=== PATIENT | female | born 1985 | race Asian ===

== ENCOUNTER → 2021-02-04 | Outpatient (CLI) | payer OTHER ==
--- NOTE | 2021-02-06 08:02 | ECGEPIP ---
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 No prior tracing for comparison. Clincal correlation advised Electronically Signed on 02-06-2021 8:02:16 EDT by Mario Jeff
== END ==
LOC: M EKG 11:30
PROVIDERS: ATTEND Registered Nurse Maternal Newborn
DX: O24.419 Gestational diabetes mellitus in pregnancy, unspecified control (principal)

== ENCOUNTER → 2021-05-15 | Outpatient (CLI) | payer OTHER ==
--- NOTE | 2021-05-15 11:57 | REP ---
INDICATION: PREG, GROWTH, DIABETES. COMPARISON: None. TECHNIQUE: Multiple ultrasonographic images of the gravid uterus. FINDINGS: There is a single intrauterine gestation in a breech presentation. heart rate is 135 beats per minute. The placenta is anterior with grade 1 maturity. There is no placenta previa. Subjectively the amniotic fluid volume is normal. MAGI: 19.7 (9.4-22.8). Cervix measures 4.3 cm in length. The composite ultrasound gestational age by today's study is 28 weeks 4 days with an INÉS of 08/03/2021. Gestational age by LMP is 28 weeks 1 day with an INÉS of 08/06/2021. Estimated weight is 1231 g/2 lb, 11 oz. This is the 51st percentile for 28 weeks 1 day. Umbilical artery Doppler assessment: PSV 53.6 centimeters/second. EDV 19.0 centimeters/second. S/D 2.82 (2.08-4.35). RI 0.65 (0.55-0.78). The following anatomic structures are identified and are unremarkable: Cranium, falx, intracranial ventricles, choroid plexus, facial profile, orbits, upper lip, lungs, cardiac rhythm, diaphragm, stomach, abdominal wall, bladder and 3 vessel cord. Suboptimally demonstrated because of age and position are the four-chamber view of the heart, cardiac right left ventricular outflow tracts, and right and left kidneys. A follow-up study dedicated to these structures might be considered. IMPRESSION: Some of the anatomic structures are suboptimally demonstrated because of age and position. Follow-up study dedicated to these structures might be considered. <Electronically signed by Jong De La Garza > 05/15/21 2148
== END ==
LOC: M RAD 10:42
PROVIDERS: ATTEND Registered Nurse Maternal Newborn
DX: O24.113 Pre-existing type 2 diabetes mellitus, in pregnancy, third trimester (principal); Z3A.28 28 weeks gestation of pregnancy; O32.1XX0 Maternal care for breech presentation, not applicable or unspecified

== ENCOUNTER → 2021-07-09 | Outpatient (CLI) | payer OTHER ==
--- NOTE | 2021-07-09 16:25 | REP ---
INDICATION: DIABETES. COMPARISON: 1121 the only prior TECHNIQUE: Transabdominal FINDINGS: Multiple ultrasonographic images of the gravid uterus shows a single living intrauterine gestation in the cephalic presentation. The placenta is anterior right lateral and not low-lying. The cervix measures 3.6 cm in length and is closed. The subjective amniotic fluid volume is within normal limits. Doppler interrogation of the heart shows a heart rate of 150 beats per minute. Doppler interrogation of the umbilical artery shows an A\B ratio of 2.16 which is within the normal range. BPD: 9.1 cm 37 weeks 1 day HC: 33.1 cm 37 weeks 4 days AC: 34.4 cm 38 weeks 2 days FL: 7.3 cm 37 weeks 4 days The estimated weight is 3337 g which is greater than the 97th percentile for a 36 week 0 day gestational age which was based on the 1st ultrasound study. The kidneys and four-chamber heart were seen to be unremarkable today once again, the ventricular outflow tracts are seen suboptimally. IMPRESSION: Single living intrauterine gestation as described above with an estimated gestational age of 37 weeks 4 days via composite criteria and an estimated date of delivery of 07/26/2021 by today's exam. No anomalies were detected, however, the ventricular outflow tracts were still seen suboptimally. The remainder of the anatomical screen is complete, however, follow-up to visualize the outflow tracks is recommended <Electronically signed by Jarek Reinoso > 07/09/21 [id number]
== END ==
LOC: M RAD 15:02
PROVIDERS: ATTEND Advanced Practice Midwife
DX: O24.113 Pre-existing type 2 diabetes mellitus, in pregnancy, third trimester (principal); Z3A.35 35 weeks gestation of pregnancy

== ENCOUNTER 2021-07-12 10:45 | Inpatient (IN) | payer OTHER ==
[~2021-07-12] VITALS: Ht 154.9 cm; Wt 65.9 kg
[2021-07-12] VITALS (33 sets, daily range): BP systolic 125–184; BP diastolic 70–122
[2021-07-12] MEDS ORDERED: PRENTAB9 PO (11:21)
[2021-07-12] MEDS ORDERED: UNIS25TA3 PO (11:21)
[2021-07-12] MEDS ORDERED: ASPI81CH33 PO (11:21)
[2021-07-12 13:07] LABS: HEMATOCRIT 40.1 % (36.0-47.0); HEMOGLOBIN 14.1 g/dl (12.0-15.5); MEAN CORPUSCULAR HEMOGLOBIN 33.1 pg (27.0-33.0); MEAN CORPUSCULAR HGB CONC 35.2 g/dl (32.0-36.5); MEAN CORPUSCULAR VOLUME 94.1 fl (80.0-96.0); PLATELET COUNT, AUTOMATED 207 10^3/uL (150-450); RED BLOOD COUNT 4.26 10^6/uL (4.00-5.40); WHITE BLOOD COUNT 7.1 10^3/uL (4.0-10.0)
[2021-07-12 13:27] LABS: ALT/SGPT 26 U/L (12-78); BILIRUBIN,TOTAL 0.4 MG/DL (0.2-1.0); GLOMERULAR FILTRATION RATE > 60.0 (>60); LDH LACTATE DEHYDROGENASE 202 U/L (84-246); URIC ACID 7.3 MG/DL (2.6-6.0)
[2021-07-12 13:51] LABS: CREATININE,RANDOM URINE 23.3 MG/DL; TOTAL PROTEIN,RANDOM URINE 11.4 MG/DL (0.0-12.0)
[2021-07-12] MEDS: BETAMETHASONE SOLUSPAN 6MG/ML 5ML VIAL (J0702 PER 3MG) IM SCH (14:24)
[2021-07-12] MEDS: LABETALOL 100MG/20ML VIAL IV SCH ×2 (15:51→16:23)
[2021-07-12] MEDS ORDERED: LIDOCAINE 1% MDV 20ML VIAL INFIL PRN (15:55)
[2021-07-12] MEDS ORDERED: TRANEXAMIC ACID INJection 1,000 MG in NS 100 ML IV PRN (15:55)
[2021-07-12] MEDS ORDERED: CARBOPROST TROMETHAMINE 250 MCG/ML AMP IM PRN (15:55)
[2021-07-12] MEDS ORDERED: miSOPROStol 25MCG 1/4 TABLET SL ONE (15:55)
[2021-07-12] MEDS ORDERED: OXYTOCIN DRIP 30 UNITS in IV 1 EA IV PRN (15:55)
[2021-07-12] MEDS ORDERED: CALCIUM GLUCONATE 1,000 MG in D5W MINI-BAG PLUS 100 ML IV PRN (15:55)
[2021-07-12] MEDS ORDERED: MAG Sulf (L&D) 4 GM/100 ML 4 GM in IV 1 EA IV ONE (16:00)
[2021-07-12] MEDS ORDERED: PENICILLIN G POTASSIUM IV 5 MU in D5W MINI-BAG PLUS 100 ML IV ONE (16:00)
[2021-07-12] MEDS: MAG Sulf (OBGYN) 20GM/500ML 20,000 MG in IV 1 EA IV SCH (16:27)
[2021-07-12] MEDS: LR 1,000 ML IV SCH (16:28)
--- NOTE | 2021-07-12 16:32 | HPEPDOC ---
Obstetrical History & Physical General Date of Admission History of Present Illness Chief Complaint: Patient is a 36yo G 1 P 0 at 36+3 wks gestation who was sent to L&D triage from clinic due to severe range blood pressures during APFT. Patient was observed in outpatient status for 4 hrs and continued to have mild elevations in blood pressure Patient presents: Spouse HPI: Reports irregular cramping. Denies any leaking of fluid, vaginal bleeding. Reporting good movement. Denies any contractions. Denies any headaches, nausea, vomiting, RUQ pain. Denies any dysuria, vaginal discharge, vaginal itching/burning. ROS: GEN: Feeling Fine. Denies fevers, chills. Denies Fatigue. Psych: Denies severe depression. Eyes: Denies change in vision/ scotomata/blurred vision. Resp: Denies SOB/ANNA, cough, or wheezing. Card: Denies palpitations or Chest pain. MSK: Denies calf pain. Denies low back pain. Lymph: Denies edema to upper or lower extremities bilaterally. ALLERGIES: No allergic/immunologic symptoms. NKDA- Reviewed Information Provided By: Patient Dating Final EDC: Aug 06, 2021 Final EDC by: LMP LMP: Oct 30, 2020 EGA at Admission: 36.3 Antepartum Course Diagnos(e)s 1. Diabetes- diagnosed in 1st trimester Height (inches): 61 Pre- weight (lbs.): 121 Admission Weight (lbs.): 144 Change in Weight (lbs.): 23 Past Medical History Past Obstetrical History : Past Obstetrical History: Primgravida SURFACE TO [employer] History: No pertinent history Past Medical History Medical History Denies Surgical History: Denies/None Family History Significant Family History: No pertinent family hx Social History Marital Status: Family situation: Spouse/partner home Psychosocial History: No pertinent psych hx * Smoker: non-smoker Alcohol: Denies Drugs: denies Abuse Violence Screening Have you been hit/kicked/slapp: No Have you been sexually assault: No Imunizations Tdap status: current Allergies Coded Allergies: No Known Allergies (Unverified , 07/12/21) Medications Scheduled Aspirin (Aspirin) 81 Mg Tab.chew, 1 TAB PO DAILY for pain Doxylamine Succinate (Unisom Sleep Aid) 25 Mg Tablet, 1 TAB PO QPM No.137/Iron/Folic Acd ( Vitamin Tablet) 1 Each Tablet, 1 TAB PO DAILY Physical Examination Physical Examination Exam: General: Well-appearing, in no acute distress. PSYCH: Well groomed. Appropriate affect, normal mood. Conversed easily. Neuro: Oriented to time, place, and person. Patellar Deep tendon reflexes normal. Negative clonus. RESP: Lungs clear to auscultation bilaterally without wheezes, rales or rhonchi. Unlabored breathing. CV: Normal RRR, no murmur, c/w normal . No edema to bilateral upper and lower extremities. Negative calf tenderness. ABD: Gravid. Soft, non-tender. BS normal x4 quad. Uterus non-tender. MSK: Normal mvmt all extremities. Steady gait. Soledad from a seated position without assistance. SKIN: Dry, intact. Genitalia: External Genitalia showed no abnormalities, Obstetrical: Clinical Pelvimetry: Pelvis adequate, untested. FHR: 145 rate, moderate variability, accelerations present, no decelerations. Contractions noted every 5-10 min, mild to palpation. VTX by Zack EFW: 3300gm SVE: 1/thick/-2, posterior/meconium @ 1340 Jack Machine Operator present for exam: L&D RN Vital Signs/I&O Vital Signs Date Time Temp Pulse Resp B/P (MAP) Pulse Ox O2 Delivery O2 Flow Rate FiO2 07/12/21 15:50 07/12/21 15:38 07/12/21 15:35 07/12/21 14:35 98.9 88 83 77 85 18 16 184/122 176/100 180/97 164/107 (126) 07/12/21 11:10 97.9 Laboratory Data 24H LABS Laboratory Tests 2 07/12/21 12:43: Urine Random Creatinine 23.3, Urine Random Total Protein 11.4. P:C 0.489 07/12/21 12:52: Nucleated Red Blood Cells % (auto) 0.3H, Glomerular Filtration Rate > 60.0, Uric Acid 7.3H, Total Bilirubin 0.4, Aspartate Amino Transf (AST/SGOT) 24, Alanine Aminotransferase (ALT/SGPT) 26, Lactate Dehydrogenase 202, Syphilis Serology NONREACTIVE 07/12/21 14:13: Coronavirus (COVID-19)(PCR) NEGATIVE CBC/BMP Laboratory Tests 07/12/21 12:52 Microbiology Microbiology 07/12/21 Group B Streptococcus Screen (DONNA), Received Pending Pertinent Laboratoy Data Blood Type: B+ RBC Antibody Screen: Negative HIV: Negative Hepatitis B: Negative Rapid Plasma Reagin: Nonreactive Rubella: Immune Varicella: Immune Chlamydia/Gonorrhea: Negative Group B Streptococcus: Unknown Quad Screen Test: Negative Glucose Tolerance Test: 180 (early with elevated 3hr GTT) Anatomy Ultrasound Ultrasound Date: Mar 18, 2021 Placenta Location: Anterior Normal Anatomy: Yes Placenta Previa: No Other Ultrasounds 05/15/21 SMC: AUA 28+4. EFW 1231gm (51%). Normal fluid, CL 4.cm. Normal umbilical doppler flow. Unable to visualized heart and kidneys. 06/12/21: EFW 2010gm (54%). Normla umbilical doppler flow. Normal fluid. Normal growth. 07/09/21: EFW 3337gm (>97%). normal anatomy. Normal umbilical doppler flow. Steroid Therapy Steroid Therapy: Yes Date #1: Jul 12, 2021 Reason , planned IOL Assessment/Plan Assessment 36yo G 1 P 0 at 36 +3 wks gestation presents seen on L&D triage for extended monitoring due to elevated blood pressure in clinic. While on observation, pt with persistent severe range blood pressures meeting criteria for Pre-eclampsia with severe features. Admit for Induction of labor at this time. B positive/RI/ GBS unknown, swab collected this afternoon Persistent severe range blood pressures at this time with Proteinuria meeting criteria for Pre-e with severe features. LFT and CBC normal. Benign physical exam FHR Cat 1 tracing VTX by Zack & exam EFW: 3300gm by recent US SVE: 1/thick/-2, posterior/medium Plan Consulted with Dr. Conley, admit and proceed to IOL. Admit, consent completed Start mag sulfate for seizure prophylaxis now. Labetalol IV for blood pressures now Plan placement of scott cath to drainage to facilitate strict I&O. Clear liquids at this time. Plan PCN to start for GBS unknown until GBS returns negative. Plan to start when ROM or in active labor. Betamethasone given this afternoon. If still , plan 2nd dose tomorrow. Address pain needs as the arise. Continuous EFM Plan to start IOL process with Buccal 25mcg cytotec with placement of scott bulb when able. Anticipate Labor and Delivery Counseling Reviewed with patient the following with the patient in regards to vaginal delivery (Deliver through the vaginal canal): The purpose of the procedure is to deliver a baby. There may be maternal risks involved with vaginal delivery to include but not limited to: -Use of the medications to induce or augment labor with the risks of uterine rupture, infection, heart rate abnormalities, hemorrhage, and/or need for emergency delivery. -Artificial rupture of the amniotic sac with the risk of cord prolapse -Internal monitors with the associate risks of infection or fever -Infection, which is fever during the labor process -IV pain management, anesthesia as indicated and associated risks with those medications -Vaginal lacerations and repair, episiotomy and repair when needed -Injury to the baby or mother at the time of delivery, -Maternal organ damage, maternal or -Prolonged hospitalized -Possible painful intercourse, chronic pelvic pain In addition to these maternal risks, there may be other possible risks involved in this procedure including, but not limited to: bleeding with the possible need for blood transfusion. Risks of blood transfusion can include but are not french ited to: possible transfusion reaction, virus transmission. Patient consents to blood transfusion if necessary. The likelihood of a successful outcome for this procedure is: Good Reviewed with patient the generally recognized and accepted practical alternatives to this procedure and the accompanying risks are: -Possible emergent Section with its risk of damage to internal organs and necessary repairs, laceration to the baby and necessary repairs -Possible operative vaginal delivery to include forceps or vacuum assist, resulting in: maternal tissue damage, maternal urinary or bowel incontinence, baby bruising, hematoma, scalp swelling, scalp laceration, skull fracture, facial paralysis and its repair Reviewed with patient the practice of medicine is not an exact science and that no guarantees can be made to the patient concerning the results of this procedure, nor guarantees to the effect this procedure will have on underlying medical issues. Reviewed with patient that during the course of labor, it may be necessary or appropriate to perform additional procedure(s) which were unforeseen or not known to be needed at the time of admission. Ms. Beckford appears to understand these risks and elects to proceed with induction of labor today. MARVIN NEGRETE CNM Jul 12, 2021 15:16
--- NOTE | 2021-07-12 17:48 | IPNPDOC ---
Obstetrical Progress Note Date of Service Jul 12, 2021 Objective Vital Signs Date Time Temp Pulse Resp B/P (MAP) Pulse Ox O2 Delivery O2 Flow Rate FiO2 07/12/21 16:23 84 160/105 07/12/21 14:35 16 07/12/21 11:10 97.9 Assessment and Plan Additional Comments To room for acceptance of care. Patient is currently on Mg for pre-eclampsia with severe features requiring IV antihypertensives. She reports no symptoms of pre-eclampsia or magnesium toxicity at this time. Her BPs are mild range. Her NST is CAT I. She has recieved 1 dose of cytotec. SVE 50/-3, DLFB placed. Discussed pain control, desires epidural later and IV pain medications in the interm if she would like. EFREN JONES DO Jul 12, 2021 17:48
[2021-07-12] MEDS ORDERED: miSOPROStol 25MCG 1/4 TABLET PV ONE (20:40)
[2021-07-12] MEDS ORDERED: miSOPROStol 25MCG 1/4 TABLET PO ONE (20:45)
[2021-07-12] MEDS: PENICILLIN G POTASSIUM IV 2.5 MU in IV 1 EA IV SCH (20:52)
[2021-07-13] VITALS (52 sets, daily range): BP systolic 111–188; BP diastolic 66–112
[2021-07-13] MEDS ORDERED: miSOPROStol 50MCG 1/2 TABLET PO ONE (00:20)
[2021-07-13] MEDS ORDERED: miSOPROStol 25MCG 1/4 TABLET PO ONE ×2 (00:55→05:30)
[2021-07-13] MEDS: PENICILLIN G POTASSIUM IV 2.5 MU in IV 1 EA IV SCH ×3 (01:17→09:45)
[2021-07-13] MEDS: MAG Sulf (OBGYN) 20GM/500ML 20,000 MG in IV 1 EA IV SCH ×3 (02:33→22:10)
[2021-07-13] MEDS ORDERED: ACETAMINOPHEN 500 MG TAB PO PRN (03:45)
[2021-07-13] MEDS: LR 1,000 ML IV SCH ×2 (05:49→16:18)
--- NOTE | 2021-07-13 10:31 | IPNPDOC ---
Text Note Date of Service Item Value Date Time Urine Random Creatinine 23.3 MG/DL 07/12/21 1243 Urine Random Total Protein 11.4 MG/DL 07/12/21 1243 Item Value Date Time Creatinine 0.70 MG/DL 07/12/21 1252 Glomerular Filtration Rate > 60.0 07/12/21 1252 Uric Acid 7.3 MG/DL H 07/12/21 1252 Total Bilirubin 0.4 MG/DL 07/12/21 1252 Aspartate Amino Transf (AST/SGOT) 24 U/L 07/12/21 1252 Alanine Aminotransferase (ALT/SGPT) 26 U/L 07/12/21 1252 Lactate Dehydrogenase 202 U/L 07/12/21 1252 Item Value Date Time White Blood Count 7.1 10^3/uL 07/12/21 1252 Red Blood Count 4.26 10^6/uL 07/12/21 1252 Hemoglobin 14.1 g/dl 07/12/21 1252 Hematocrit 40.1 % 07/12/21 1252 Mean Corpuscular Volume 94.1 fl 07/12/21 1252 Mean Corpuscular Hemoglobin 33.1 pg H 07/12/21 1252 Mean Corpuscular Hemoglobin Concent 35.2 g/dl 07/12/21 1252 Red Cell Distribution Width 13.5 % 07/12/21 1252 Platelet Count 207 10^3/uL 07/12/21 1252 Nucleated Red Blood Cells % (auto) 0.3 % H 07/12/21 1252 The patient was seen on 07/13/21. NOTE 07/13/2021 review progress to date . Patient admitted history of severe range bp while monitoring. RISK FACTORS AGDM1 DIET HISTORY SUGGESTS PRE -E . PATIENT GIVEN 4 LOTS CYTOTEC 25 MG,MARTINEZ'S CATHETER 80/60 HAVING SEVERE PAIN WITH PRESSURE IV MGSO4 AND STEROIDS AND PEN G RE GBS STATUS UNKNOWN . REVIEWED CHEMISTRY URIC ACID ELEVATED AND P/C RATIO .41. PLAN OF CARE PATIENT TO EAT X1 THEN REMOVED MARTINEZ'S CATHETER OLD SHOW CERVIX POSTERIOR SOFT 60% EFFACED STRETCHY 4 CM BULGING MEMBRANES PRELIMINARY GBS NEGATIVE . ANTICIPATE D/C PENICILLIN GBS NEGATIVE START LOW DOSE PITOCIN EPIDURAL WHEN APPROPRIATE CONTINUE MGSO4, WILL ORDER CBC RANDOM GLUCOSE MG LEVEL . PATIENT EXPRESSED UNDERSTANDING PLAN OF CARE VS,Fishbone, I+O VS, Fishbone, I+O Laboratory Tests 07/12/21 12:52 Vital Signs Date Time Temp Pulse Resp B/P (MAP) Pulse Ox O2 Delivery O2 Flow Rate FiO2 07/13/21 09:29 76 18 129/77 (94) 07/13/21 07:29 97.6 07/12/21 19:18 98 Room Air I&O- Last 24 Hours up to 6 AM 07/13/21 05:59 Intake Total 2103 ml Output Total 2440 ml Balance -337 ml Bethel Alas MD Jul 13, 2021 10:27
[2021-07-13] MEDS ORDERED: OXYTOCIN 30 UNITS IN 0.9% NaCl 500ML IV BAG (J2590) As Ordered ONE (13:45)
[2021-07-13] MEDS ORDERED: OXYTOCIN DRIP 30 UNITS in IV 1 EA IV SCH (13:45)
[2021-07-13] MEDS: BETAMETHASONE SOLUSPAN 6MG/ML 5ML VIAL (J0702 PER 3MG) IM SCH (14:10)
[2021-07-13 15:56] LABS: HEMATOCRIT 38.9 % (36.0-47.0); HEMOGLOBIN 13.7 g/dl (12.0-15.5); MEAN CORPUSCULAR HEMOGLOBIN 33.1 pg (27.0-33.0); MEAN CORPUSCULAR HGB CONC 35.2 g/dl (32.0-36.5); PLATELET COUNT, AUTOMATED 201 10^3/uL (150-450); RED BLOOD COUNT 4.14 10^6/uL (4.00-5.40); WHITE BLOOD COUNT 9.5 10^3/uL (4.0-10.0)
[2021-07-13 16:20] LABS: MAGNESIUM LEVEL 6.7 MG/DL (1.8-2.4)
[2021-07-13] MEDS ORDERED: FENTANYL 2MCG/ML ROPIVACAINE 0.2% IN 0.9% NACL 100ML IVBAG As Ordered ONE (21:51)
--- NOTE | 2021-07-13 23:19 | IPNPDOC ---
Text Note Date of Service The patient was seen on 07/13/21. NOTE 07/13/21 2315 review post epidural had 2 sever range bp with pain post epid ural bp stabilized . on Pitocin 14 munits category 1 strip arom clear liquor vertex -3 station 75% effaced loose 4 cm mid position safe to proceed VS,Fishbone, I+O VS, Fishbone, I+O Laboratory Tests 07/13/21 15:42 Vital Signs Date Time Temp Pulse Resp B/P (MAP) Pulse Ox O2 Delivery O2 Flow Rate FiO2 07/13/21 22:57 78 16 142/89 (106) 07/13/21 22:25 98.0 100 07/12/21 19:18 Room Air I&O- Last 24 Hours up to 6 AM 07/13/21 06:00 Intake Total 2103 ml Output Total 2440 ml Balance -337 ml Bethel Alas MD Jul 13, 2021 23:19
[2021-07-14] VITALS (71 sets, daily range): BP systolic 103–197; BP diastolic 56–115
[2021-07-14] MEDS ORDERED: EPIDURAL COMMENT XX SCH (00:55)
[2021-07-14] MEDS ORDERED: ONDANSETRON 4MG/2ML VIAL IV PRN (00:55)
[2021-07-14] MEDS ORDERED: FENTANYL/ROPIVACAINE/NACL BAG 100 ML EPIDURAL SCH (00:55)
[2021-07-14] MEDS ORDERED: EPIDURAL/PCA KEYS XX PRN (00:55)
[2021-07-14] MEDS ORDERED: diphenhydrAMINE 50MG/ML VIAL (J1200) IV PRN (00:55)
[2021-07-14] MEDS ORDERED: ePHEDrine SULFATE 25 MG/5 ML(5MG/ML) SYRINGE IV PRN (00:55)
[2021-07-14] MEDS ORDERED: NALOXONE INJ 0.4MG/1ML VIAL (J2310 PER 1MG) IV PRN (00:55)
[2021-07-14] MEDS ORDERED: LACTATED RINGER'S 1000 ML IV PRN (00:55)
[2021-07-14] MEDS ORDERED: REFRIGERATOR IV KEYS XX PRN (00:55)
[2021-07-14] MEDS ORDERED: OXYTOCIN INJ 10 UNITS/ML VIAL (J2590) As Ordered ONE (02:39)
[2021-07-14] MEDS ORDERED: RHOGAM 300 MCG (1500 IU) INJ (J2790) IM SCH (05:55)
[2021-07-14] MEDS ORDERED: DIBUCAINE 1% OINTMENT 30GM TOP PRN (05:55)
[2021-07-14] MEDS ORDERED: ACETAMINOPHEN TAB 650MG DOSE (2X325MG) PO PRN (05:55)
[2021-07-14] MEDS ORDERED: MEASLES,MUMPS,RUBELLA VACCINE INJ (MMR-II) (90707) SC SCH (05:55)
[2021-07-14] MEDS ORDERED: DOCUSATE SODIUM 100MG CAPSULE PO PRN (05:55)
[2021-07-14] MEDS ORDERED: ANUSOL HC CREAM 30GM TOP PRN (05:55)
[2021-07-14] MEDS ORDERED: METHYLERGONOVINE MALEATE 0.2 MG TAB PO PRN (05:55)
[2021-07-14] MEDS ORDERED: MOM 30ML SUSPENSION UDC PO PRN (05:55)
[2021-07-14] MEDS ORDERED: ACETAMINOPHEN 500 MG TAB PO PRN (05:55)
[2021-07-14] MEDS ORDERED: OXYTOCIN DRIP 30 UNITS in IV 1 EA IV ONE (05:55)
[2021-07-14 06:16] LABS: CORD GAS ABE A -6.7; CORD GAS HCO3 A 21.8 MEQ/L; CORD GAS PCO2 A 55.1 mmHg; CORD GAS PH A 7.215 UNITS; CORD GAS PO2 A 14.7 mmHg; CORD GAS SBC A 17.4 MEQ/L; CORD GAS TCO2 A 23.5 MEQ/L
[2021-07-14 06:19] LABS: CORD GAS ABE V -6.8; CORD GAS HCO3 V 18.7 MEQ/L; CORD GAS O2 SAT V 72.9 %; CORD GAS PCO2 V 37.5 mmHg; CORD GAS PH V 7.315 UNITS; CORD GAS PO2 V 32.8 mmHg; CORD GAS SBC V 18.5 MEQ/L; CORD GAS TCO2 V 19.8 MEQ/L
[2021-07-14] MEDS ORDERED: LABETALOL 100MG/20ML VIAL IV STA ×2 (06:25→20:11)
[2021-07-14] MEDS: LR 1,000 ML IV SCH ×5 (07:29→21:55)
[2021-07-14] MEDS: MAG Sulf (OBGYN) 20GM/500ML 20,000 MG in IV 1 EA IV SCH ×2 (07:29→17:41)
[2021-07-14] MEDS: PRENATAL VITAMINS CHEWABLE TABLET PO SCH (09:37)
[2021-07-14] MEDS: LABETALOL 100MG TAB PO SCH ×2 (10:07→20:33)
[2021-07-14] MEDS: IBUPROFEN 600MG TAB PO PRN (12:34)
[2021-07-14 15:11] LABS: HEMATOCRIT 24.5 % (36.0-47.0); MEAN CORPUSCULAR HEMOGLOBIN 33.3 pg (27.0-33.0); MEAN CORPUSCULAR HGB CONC 35.1 g/dl (32.0-36.5); PLATELET COUNT, AUTOMATED 150 10^3/uL (150-450); RED BLOOD COUNT 2.58 10^6/uL (4.00-5.40); WHITE BLOOD COUNT 12.7 10^3/uL (4.0-10.0)
[2021-07-14 15:18] LABS: HEMOGLOBIN 8.6 g/dl (12.0-15.5)
[2021-07-14 15:38] LABS: ALBUMIN 1.6 GM/DL (3.2-5.2); ALT/SGPT 15 U/L (12-78); BILIRUBIN,TOTAL 0.2 MG/DL (0.2-1.0); BLOOD UREA NITROGEN 10 MG/DL (7-18); CALCIUM LEVEL 6.1 MG/DL (8.5-10.1); CARBON DIOXIDE LEVEL 23 MEQ/L (21-32); CHLORIDE LEVEL 100 MEQ/L (98-107); CREATININE FOR GFR 0.68 MG/DL (0.55-1.30); GLOMERULAR FILTRATION RATE > 60.0 (>60); GLUCOSE, FASTING 133 MG/DL (70-100); MAGNESIUM LEVEL 6.3 MG/DL (1.8-2.4); POTASSIUM SERUM 4.2 MEQ/L (3.5-5.1); SODIUM LEVEL 130 MEQ/L (136-145); TOTAL PROTEIN 4.1 GM/DL (6.4-8.2)
[2021-07-14] MEDS ORDERED: LABETALOL 200 MG TAB PO SCH (21:00)
[2021-07-15] VITALS (16 sets, daily range): BP systolic 119–145; BP diastolic 67–91
--- NOTE | 2021-07-15 06:55 | IPN ---
PROGRESS NOTE DATE: 07/15/2021 SUBJECTIVE: This lady is a 36-year-old 1 now para 1 who was admitted at 36 and 5 weeks of gestation for induction of labor because of preeclampsia. She had an epidural in place, had a spontaneous vaginal delivery of female 6 pounds, 2 ounces, 2790 grams, Apgars of 8 and 9 at 1 and 5 minutes respectively, terminal meconium, cord x1, arterial pH 7.21, base excess -6.7, venous pH 7.31, base excess -6.8. She had 24 hours of magnesium sulfate and Esqueda catheter which she diuresed well. She had considerable ups and downs in her blood pressures and was started on labetalol 200 b.i.d. OBJECTIVE: Today, her blood pressure is 133/76, pulse is 95, respirations are 16, temperature is 99.8. She is normocephalic, atraumatic. Neck: Full range of motion. Pupils equal and reactive to light. Distal pulses are symmetric. No evidence of DVT, PE or superficial phlebitis. Chest is clear bilaterally at bases. No wheezes or rhonchi. No CVA tenderness. Abdomen is soft, four quadrant bowel sounds are noted. Uterus is 2 below. Lochia is moderate. The perineum is intact. Her hemoglobin day #1 is 8.6, hematocrit is 24.5, and platelets are 150,00. The plan of care is to discontinue her IVs, Esqueda catheter removal, full diet, ambulate and move her to the steele. The patient expressed an understanding of the plan, the possibility of discharge tomorrow morning. Medications are at [place], a 20 minute discussion. All questions were answered. cc: [facility]
[2021-07-15 07:16] LABS: HEMATOCRIT 24.4 % (36.0-47.0); HEMOGLOBIN 8.3 g/dl (12.0-15.5); MEAN CORPUSCULAR HEMOGLOBIN 32.9 pg (27.0-33.0); MEAN CORPUSCULAR VOLUME 96.8 fl (80.0-96.0); PLATELET COUNT, AUTOMATED 152 10^3/uL (150-450); RED BLOOD COUNT 2.52 10^6/uL (4.00-5.40); WHITE BLOOD COUNT 11.8 10^3/uL (4.0-10.0)
--- NOTE | 2021-07-15 08:21 | DN ---
DELIVERY NOTE DATE OF DELIVERY: 07/14/2021 TIME OF : GENDER: APGARS: LACERATIONS: ANESTHESIA: ESTIMATED BLOOD LOSS: COUNTS: DESCRIPTION OF DELIVERY: A 36-year-old, 1, admitted at 36 and 4 for induction of labor because of preeclampsia with severe range features. She had four lots of Cytotec. She then had a Esqueda bulb Cook's catheter. This was subsequently removed. Pending her GBS status, she continued to receive Pen-G. When GBS status preliminary was negative, this was discontinued. She was augmented with Pitocin and at the appropriate interval, had an epidural in place and ARM draining clear liquor and she had full dilatation, had spontaneous vaginal delivery of female weighing 6 lb, 2 oz, 2790 gm, Apgars of 8 and 9 at 1 and 5 minutes respectively. Cord was around the neck x1. Terminal meconium was noted at the delivery. Apgars were 8 and 9. Arterial and venous pH were performed that are still pending. Placenta delivered spontaneously thereafter, three vessels and the cord membranes and tissues intact. The uterus was quite atonic secondary to being on magnesium sulfate for over 24 hours. She had some intermittent severe ranged blood pressures while she was pushing. However, once the pushing efforts were over, the blood pressures came down to mid-range blood levels. Examination of anterior, posterior and lateral stewart was complete. The sphincter was tight. Because of her atonic uterus, she was given misoprostol 1000 mg per rectum, continued massage and Pitocin at 999 mL per hour. The uterus eventually contracted down, caught up to the delivery. The patient was stable. Approximate blood loss was 500 mL. The patient will be maintained on mag sulfate for the next 24 hours.
[2021-07-15] MEDS: PRENATAL VITAMINS CHEWABLE TABLET PO SCH (09:01)
[2021-07-15] MEDS: LABETALOL 200 MG TAB PO SCH ×2 (09:01→20:10)
[2021-07-15] MEDS: IBUPROFEN 600MG TAB PO PRN (09:07)
[2021-07-16] MEDS: IBUPROFEN 600MG TAB PO PRN (00:23)
[2021-07-16 02:11] VITALS: BP 122/70
[2021-07-16 05:39] VITALS: BP 119/63
--- NOTE | 2021-07-16 06:37 | IPNPDOC ---
Progress Note Date of Service: Jul 16, 2021 Progress Note SUBJECT: Debbi Beckford is a 36-year-old 1 now para 1 who was admitted at 36 and 5 weeks of gestation for induction of labor because of preeclampsia. She had an epidural in place, had a spontaneous vaginal delivery of female infant 6 pounds, 2 ounces, 2790 grams, Apgars of 8 and 9 at 1 and 5 minutes respectively, terminal meconium, cord x1, arterial pH 7.21, base excess -6.7, venous pH 7.31, base excess -6.8. She had 24 hours of magnesium sulfate and Esqueda catheter which she diuresed well. She had considerable ups and downs in her blood pressures and was started on labetalol 200 b.i.d.; now doing well day # 2. She has been ambulating, voiding spontaneously without issue and tolerating regular diet. Breast feeding without issue. Reports lochia is small. Patient is ambulating well. She denies headaches, vision changes, shortness of breath, right upper quadrant pain. OBJECTIVE: VITAL SIGNS: Within normal limits, afebrile. Alert and oriented times three. Breath sounds clear to auscultation. Heart rate: Regular rate and rhythm, no murmurs, rubs or gallops. Abdomen: Fundus firm at U-2. Soft, NTTP. Negative calf tenderness bilaterally. ASSESSMENT: As above doing well on day 2. Vitals within normal limits, afebrile, hemodynamically stable with no evidence of infection. On labetalol 200mg PO BID. No signs/symptoms of preeclampsia. PLAN: 1. Discharge to home today. 2. Tylenol and Motrin for pain. 3. Encourage breast feeding and ambulation. 4. Minipill for contraception for now, desires IUD at 6-week visit 5. Routine PP visit in 6 weeks in clinic. 6. Discussed return precautions at length. VS, I&O, 24H, Fishbone Vital Signs/I&O Vital Signs Date Time Temp Pulse Resp B/P (MAP) Pulse Ox O2 Delivery O2 Flow Rate FiO2 07/16/21 05:39 98.2 79 18 119/63 (81) 96 Room Air I&O- Last 24 Hours up to 6 AM 07/16/21 06:00 Output Total 1550 ml Balance -1550 ml Laboratory Data 24H LABS Laboratory Tests 2 07/15/21 07:08: Nucleated Red Blood Cells % (auto) 0.3H CBC/BMP Laboratory Tests 07/15/21 07:08 Microbiology Microbiology 07/12/21 Group B Streptococcus Screen (DONNA) - Final, Complete JEANETTE CATALAN DO Jul 16, 2021 06:37
[2021-07-16] MEDS ORDERED: IBUP-1022 PO (06:38)
[2021-07-16] MEDS ORDERED: ACET1TAB55 PO (06:38)
[2021-07-16] MEDS ORDERED: DOCU100C16 PO (06:38)
[2021-07-16] MEDS ORDERED: LABE20TAB PO (06:38)
[2021-07-16 09:00] VITALS: BP 133/84
[2021-07-16] MEDS: LABETALOL 200 MG TAB PO SCH (09:00)
[2021-07-16] MEDS: PRENATAL VITAMINS CHEWABLE TABLET PO SCH (09:00)
[2021-07-16] MEDS ORDERED: INFLUENZA QUADRIVALENT PF VACCINE 0.5ML SYRINGE IM ONE (15:00)
[2021-07-18] MEDS ORDERED: INFLUENZA QUADRIVALENT PF VACCINE 0.5ML SYRINGE IM ONE (09:00)
== END 2021-07-16 14:40 | disposition home or self-care (01) | DRG 807 ==
LOC: M LDO 10:45 → M LDI 17:33 → M OBS 07-15 10:40
PROVIDERS: ADMIT Obstetrics & Gynecology; ATTEND Obstetrics & Gynecology
PROC: 3E0DXGC Introduction of Other Therapeutic Substance into Mouth and Pharynx, External Approach (ICD-10-PCS; 2021-07-12)
PROC: 10E0XZZ Delivery of Products of Conception, External Approach (ICD-10-PCS; principal; 2021-07-14)
PROC: 10907ZC Drainage of Amniotic Fluid, Therapeutic from Products of Conception, Via Natural or Artificial Opening (ICD-10-PCS; 2021-07-14)
DX: O14.14 Severe pre-eclampsia complicating childbirth (principal); Z37.0 Single live birth; Z3A.36 36 weeks gestation of pregnancy; O69.81X0 Labor and delivery complicated by cord around neck, without compression, not applicable or unspecified; O62.2 Other uterine inertia